=== PATIENT | female | born 1990 | race African-American/Black ===

== ENCOUNTER 2022-06-29 11:18 | Inpatient (IN) | payer OTHER ==
[~2022-06-29 11:18] MED LIST: Bupivacaine 0.25% HCL 30 ML VIAL ONE
[2022-06-29 21:36] VITALS: BMI 26.3
[2022-06-29] MEDS ORDERED: Acetaminophen 500 MG TAB PO PRN (21:42)
[2022-06-29] MEDS ORDERED: Tranexamic Acid 1,000 MG/10 ML VIAL IVP PRN (21:42)
[2022-06-29] MEDS ORDERED: Carboprost 250 MCG/ML AMP IM PRN (21:42)
[2022-06-29] MEDS ORDERED: Lidocaine 1% (PF) 30 ML VIAL SC PRN (21:42)
[2022-06-29] MEDS ORDERED: Misoprostol 200 MCG TAB PR PRN (21:42)
[2022-06-29] MEDS ORDERED: Methylergonovine 0.2 MG/ML VIAL IM PRN (21:42)
[2022-06-29] MEDS ORDERED: Butorphanol Tartrate 1 MG/ML VIAL SLOW IVP PRN (21:42)
[2022-06-29] MEDS ORDERED: Diphenoxylate HCl/Atropine Tablet PO PRN (21:42)
[2022-06-29] MEDS ORDERED: hydrALAZINE 20 MG/ML VIAL SLOW IVP PRN (21:42)
[2022-06-29] MEDS ORDERED: Ondansetron PF 4 MG/2 ML Vial IVP PRN (21:42)
[2022-06-29] MEDS ORDERED: Promethazine HCl 25 MG/ML VIAL IM PRN (21:42)
[2022-06-29] MEDS ORDERED: HYDROcodone/Acetaminophen 5/325 mg Tablet PO PRN (21:47)
[2022-06-29] MEDS ORDERED: Ibuprofen 800 MG TAB PO PRN (21:47)
[2022-06-29] MEDS ORDERED: fentaNYL 50 mcg/mL 1 mL Vial SLOW IVP PRN (22:00)
[2022-06-29] MEDS ORDERED: NS w/ Oxytocin 30 units 500 ML IV SCH ×3 (22:00)
[2022-06-29] MEDS ORDERED: Lactated Ringer's 1,000 ML IV SCH (22:00)
[2022-06-29 22:02] LABS: Hemoglobin 10.5 g/dL (12.0-15.5); Mean Corpuscular HGB CONC 33.8 g/dL (32.0-36.0); Mean Corpuscular Hemoglobin 29.6 pg (27.0-33.0); Mean Corpuscular Volume 87.6 fl (81.6-98.3); Mean Platelet Volume 11.7 fl (7.4-10.4); Platelet Count 220 10x3/uL (150-450); RBC Distribution Width 13.8 % (11.5-14.5); Red Blood Cell (RBC) Count 3.55 10x6/uL (3.90-5.03); White Blood Cell (WBC) Count 6.9 10x3/uL (3.5-10.5)
[2022-06-29 22:30] LABS: HBSAg Index 0.13 S/CO (0-0.99); Hep B Surf Ag - L&D Non-Reactive S/CO (NonReactive)
[2022-06-29 22:32] LABS: Syphilis Antibody Nonreactive (Nonreactive); Syphilis Antibody Index 0.07 S/CO (<1.00 Non-Reactive)
[2022-06-30] MEDS ORDERED: Penicillin G Potassium 5 MILL.UNITS in Sodium Chloride 0.9% 100 ML IVPB SCH
[2022-06-30] MEDS: Misoprostol 100 MCG TAB VAG SCH ×2 (02:09→15:05)
[2022-06-30] MEDS ORDERED: Penicillin G Potassium 5 MILL.UNITS VIAL ONE (05:19)
[2022-06-30] MEDS ORDERED: Fentanyl 2 mcg/Bup 0.1% Cadd 100 ML ONE (08:11)
[2022-06-30] MEDS: Penicillin G 2.5 MILL.units 2.5 MILL.UNITS in Premix Bag 1 BAG IVPB SCH ×2 (08:59→15:53)
[2022-06-30] MEDS ORDERED: Promethazine HCl 25 MG/ML VIAL IM PRN ×2 (09:47→14:55)
[2022-06-30] MEDS ORDERED: Naloxone HCl 0.4 mg/ml Vial IVP PRN ×2 (09:47)
[2022-06-30] MEDS ORDERED: Lactated Ringer's 500 ML IV PRN (09:47)
[2022-06-30] MEDS ORDERED: ePHEDrine Sulfate 50 MG/10 ML VIAL SLOW IVP PRN (09:47)
[2022-06-30] MEDS ORDERED: Moisturizing Cream (Eucerin) 113 GM JAR TOP PRN (09:47)
[2022-06-30] MEDS ORDERED: Acetaminophen 325 MG TAB PO PRN (09:47)
[2022-06-30] MEDS ORDERED: diphenhydrAMINE 50 MG/ML VIAL IVP PRN (09:47)
[2022-06-30] MEDS ORDERED: Ondansetron PF 4 MG/2 ML Vial IVP PRN ×2 (09:47→14:55)
[2022-06-30] MEDS ORDERED: Communication Order-Pharmacy FS SCH (10:00)
[2022-06-30] MEDS ORDERED: Fentanyl 2 mcg/Bupivacaine 0.1% Cassette 100 ML EPIDURAL SCH (10:00)
[2022-06-30] MEDS ORDERED: Metoclopramide HCl 10 MG/2 ML VIAL IVP SCH (13:00)
[2022-06-30] MEDS ORDERED: NS w/ Oxytocin 30 units 500 ML IV SCH (14:55)
[2022-06-30] MEDS ORDERED: Preparation H Ointment 28 GM TUBE PR PRN (14:55)
[2022-06-30] MEDS ORDERED: HYDROcodone/Acetaminophen 5/325 mg Tablet PO PRN (14:55)
[2022-06-30] MEDS ORDERED: Lanolin Ointment 7 GM TUBE TOP PRN (14:55)
[2022-06-30] MEDS ORDERED: Bisacodyl 10 MG SUPP PR PRN (14:55)
[2022-06-30] MEDS ORDERED: Milk Of Magnesia 30 ML UDCUP PO PRN (14:55)
[2022-06-30] MEDS ORDERED: diphenhydrAMINE 25 MG CAP PO PRN (14:55)
[2022-06-30] MEDS ORDERED: Boostrix 0.5 ML (Tdap) VIAL (>/=7 yrs of age) IM ONE (14:55)
[2022-06-30] MEDS ORDERED: hydrALAZINE 20 MG/ML VIAL SLOW IVP PRN (14:55)
[2022-06-30] MEDS: Ferrous Sulfate 325 MG TAB PO SCH (17:36)
[2022-06-30] MEDS: Ibuprofen 800 MG TAB PO SCH (17:36)
[2022-06-30] MEDS: Docusate 100 MG CAP PO SCH (21:22)
[2022-07-01] MEDS: Ibuprofen 800 MG TAB PO SCH ×4 (07:34→15:30)
[2022-07-01] MEDS: Docusate 100 MG CAP PO SCH (07:35)
[2022-07-01] MEDS: Ferrous Sulfate 325 MG TAB PO SCH ×2 (07:35→18:32)
[2022-07-01] MEDS ORDERED: Prenatal Vitamin 1 TAB PO SCH (09:00)
[2022-07-01 11:01] VITALS: BP 115/69; TEMP 97.7
== END 2022-07-01 19:30 | disposition home or self-care (01) | DRG 807 ==
LOC: CSHLD 19:20 → CSHPP 06-30 14:56
PROVIDERS: ADMIT Family Medicine; ATTEND Family Medicine
PROC: 10E0XZZ Delivery of Products of Conception, External Approach (ICD-10-PCS; principal; 2022-06-30)
PROC: 10907ZC Drainage of Amniotic Fluid, Therapeutic from Products of Conception, Via Natural or Artificial Opening (ICD-10-PCS; 2022-06-30)
PROC: 3E0P7VZ Introduction of Hormone into Female Reproductive, Via Natural or Artificial Opening (ICD-10-PCS; 2022-06-30)
DX: O99.824 Streptococcus B carrier state complicating childbirth (principal); Z37.0 Single live birth; Z3A.39 39 weeks gestation of pregnancy; Z79.899 Other long term (current) drug therapy
CPT/HCPCS: 51702; 85027; 86780; 86850; 86900; 86901; 87340; J2540; J2765; J3490; S0020